=== PATIENT | male | born 1950 | race Caucasian/White ===

== ENCOUNTER → 2017-11-15 08:05 | Outpatient (CLI) | payer MEDICARE, SELFPAY ==
[2017-11-15 09:23] LABS: Hemoglobin A1C% w Est Avg Glu 6.9 % (4.0-6.0)
[2017-11-15 09:56] LABS: Alanine Aminotransferase 33 IU/L (21-72); Albumin 4.1 g/dL (3.5-5.0); Albumin Globulin Ratio 1.6 (1.0-2.8); Alkaline Phosphatase 69 U/L (38-126); Aspartate Aminotransferase 23 IU/L (17-59); BUN Creatinine Ratio 17.8 (6-22); Bilirubin Total 0.7 mg/dL (0.2-1.3); Blood Urea Nitrogen 16 mg/dL (9-20); Calcium 9.5 mg/dL (8.4-10.2); Carbon Dioxide 30 mmol/L (22-32); Chloride 102 mmol/L (98-107); Cholesterol 165 mg/dL (140-199); Estimated Glomerular Filt Rate > 60.0 mL/min (>60); Globulin 2.6 g/dL (1.7-4.1); Glucose 136 mg/dL (80-110); HDL Cholesterol 43 mg/dL (40-60); HEMOLYSIS < 15 (0-50); LDL Cholesterol Calculated 73 mg/dL (<100); Potassium 4.8 mmol/L (3.4-5.1); Sodium 142 mmol/L (137-145); Total Protein 6.7 g/dL (6.3-8.2); Triglycerides 244 mg/dL (35-150)
== END ==
PROVIDERS: PCP Internal Medicine; Visit Provider Internal Medicine
DX: E78.5 Hyperlipidemia, unspecified (principal); E11.65 Type 2 diabetes mellitus with hyperglycemia
CPT/HCPCS: 36415; 80053; 80061; 83036

== ENCOUNTER → 2018-02-22 08:17 | Outpatient (CLI) | payer MEDICARE, SELFPAY ==
[2018-02-22 08:49] LABS: Hemoglobin A1C% w Est Avg Glu 8.9 % (4.0-6.0)
[2018-02-22 08:51] LABS: Alanine Aminotransferase 39 IU/L (21-72); Albumin 4.4 g/dL (3.5-5.0); Albumin Globulin Ratio 1.5 (1.0-2.8); Alkaline Phosphatase 70 U/L (38-126); Aspartate Aminotransferase 26 IU/L (17-59); BUN Creatinine Ratio 15.6 (6-22); Bilirubin Total 0.5 mg/dL (0.2-1.3); Blood Urea Nitrogen 14 mg/dL (9-20); Calcium 9.4 mg/dL (8.4-10.2); Carbon Dioxide 29 mmol/L (22-32); Chloride 102 mmol/L (98-107); Cholesterol 159 mg/dL (140-199); Estimated Glomerular Filt Rate > 60.0 mL/min (>60); Globulin 2.9 g/dL (1.7-4.1); Glucose 201 mg/dL (80-110); Potassium 4.5 mmol/L (3.4-5.1); Sodium 142 mmol/L (137-145); Total Protein 7.3 g/dL (6.3-8.2); Triglycerides 218 mg/dL (35-150)
[2018-02-22 08:52] LABS: HDL Cholesterol 39 mg/dL (40-60); HEMOLYSIS < 15 (0-50); LDL Cholesterol Calculated 76 mg/dL (<100)
[2018-02-22 08:57] LABS: Add Manual Diff / Slide Review NO; Basophils Percent Auto 0.8 % (0-2); Hematocrit 37.6 % (41-53); Hemoglobin 12.5 g/dL (13.5-17.5); Lymphocytes Percent Auto 28.8 % (25-40); Mean Corpuscular HGB Conc 33.2 % (30-36); Mean Corpuscular Hemoglobin 27.4 PG (26-34); Mean Corpuscular Volume 82.5 fL (80-100); Monocytes Percent Auto 11.2 % (3-14); Neutrophils Absolute Auto 2700 /uL (3000-5900); Neutrophils Percent Auto 56.2 % (50-75); Platelet Count 175 X10^3/uL (150-400); Red Blood Cell Count 4.56 X10^6/uL (4.5-5.9); Red Cell Distribution Width 14.5 % (11.6-14.8); White Blood Cell Count 4.7 X10^3/uL (4.5-11.0)
[2018-02-22 09:17] LABS: HEMOLYSIS 15 (0-50); Iron 50 ug/dL (49-181)
[2018-02-22 09:21] LABS: Prostate Specific Antigen Scrn 0.589 ng/mL (0.1-4.0)
[2018-02-22 09:28] LABS: Percent Iron Saturation 12 % (20-50); Total Iron Binding Capacity 405 ug/dL (261-462); Transferrin 329 mg/dL (206-381)
== END ==
PROVIDERS: PCP Internal Medicine; Visit Provider Internal Medicine
DX: E11.65 Type 2 diabetes mellitus with hyperglycemia (principal); E78.5 Hyperlipidemia, unspecified; I10 Essential (primary) hypertension; Z12.5 Encounter for screening for malignant neoplasm of prostate; D64.9 Anemia, unspecified
CPT/HCPCS: 36415; 80053; 80061; 83036; 83540; 83550; 85025; G0103

== ENCOUNTER → 2018-05-24 08:16 | Outpatient (CLI) | payer OTHER, SELFPAY ==
[2018-05-24 09:02] LABS: Hemoglobin A1C% w Est Avg Glu 8.2 % (4.0-6.0)
[2018-05-24 09:32] LABS: BUN Creatinine Ratio 14.4 (6-22); Blood Urea Nitrogen 13 mg/dL (9-20); Calcium 9.4 mg/dL (8.4-10.2); Carbon Dioxide 27 mmol/L (22-32); Chloride 101 mmol/L (98-107); Estimated Glomerular Filt Rate > 60.0 mL/min (>60); Glucose 128 mg/dL (80-110); HEMOLYSIS < 15 (0-50); Potassium 4.6 mmol/L (3.4-5.1); Sodium 139 mmol/L (137-145)
== END ==
PROVIDERS: PCP Internal Medicine; Visit Provider Internal Medicine
DX: E11.65 Type 2 diabetes mellitus with hyperglycemia (principal)
CPT/HCPCS: 36415; 80048; 83036

== ENCOUNTER → 2018-08-02 07:47 | Outpatient (CLI) | payer OTHER, SELFPAY ==
[2018-08-02 09:08] LABS: Hemoglobin A1C% w Est Avg Glu 7.7 % (4.0-6.0)
[2018-08-02 09:39] LABS: BUN Creatinine Ratio 18.8 (6-22); Blood Urea Nitrogen 15 mg/dL (9-20); Calcium 9.4 mg/dL (8.4-10.2); Carbon Dioxide 26 mmol/L (22-32); Chloride 101 mmol/L (98-107); Estimated Glomerular Filt Rate > 60.0 mL/min (>60); Glucose 160 mg/dL (80-110); HEMOLYSIS < 15 (0-50); Potassium 4.4 mmol/L (3.4-5.1); Sodium 137 mmol/L (137-145)
== END ==
PROVIDERS: PCP Internal Medicine; Visit Provider Internal Medicine
DX: E11.65 Type 2 diabetes mellitus with hyperglycemia (principal); E11.9 Type 2 diabetes mellitus without complications
CPT/HCPCS: 36415; 80048; 83036

== ENCOUNTER → 2018-11-08 08:06 | Outpatient (CLI) | payer OTHER, SELFPAY ==
[2018-11-08 09:18] LABS: BUN Creatinine Ratio 16.3 (6-22); Blood Urea Nitrogen 13 mg/dL (9-20); Calcium 9.4 mg/dL (8.4-10.2); Carbon Dioxide 29 mmol/L (22-32); Chloride 99 mmol/L (98-107); Estimated Glomerular Filt Rate > 60.0 mL/min (>60); Glucose 175 mg/dL (80-110); HEMOLYSIS < 15 (0-50); Potassium 4.1 mmol/L (3.4-5.1); Sodium 138 mmol/L (137-145)
[2018-11-08 09:20] LABS: Hemoglobin A1C% w Est Avg Glu 8.2 % (4.0-6.0)
== END ==
PROVIDERS: PCP Internal Medicine; Visit Provider Internal Medicine
DX: E11.65 Type 2 diabetes mellitus with hyperglycemia (principal); I10 Essential (primary) hypertension
CPT/HCPCS: 36415; 80048; 83036

== ENCOUNTER → 2019-01-23 08:19 | Outpatient (CLI) | payer OTHER, SELFPAY ==
[2019-01-23 09:14] LABS: Hemoglobin A1C% w Est Avg Glu 8.9 % (4.0-6.0)
[2019-01-23 09:19] LABS: Blood Urea Nitrogen 12 mg/dL (9-20); Calcium 9.6 mg/dL (8.4-10.2); Carbon Dioxide 28 mmol/L (22-32); Chloride 102 mmol/L (98-107); Estimated Glomerular Filt Rate > 60.0 mL/min (>60); Glucose 157 mg/dL (80-110); HEMOLYSIS < 15 (0-50); Potassium 4.4 mmol/L (3.4-5.1); Sodium 139 mmol/L (137-145)
== END ==
PROVIDERS: PCP Internal Medicine; Visit Provider Internal Medicine
DX: E11.65 Type 2 diabetes mellitus with hyperglycemia (principal); I10 Essential (primary) hypertension
CPT/HCPCS: 36415; 80048; 83036

== ENCOUNTER → 2019-05-09 08:43 | Outpatient (CLI) | payer OTHER, SELFPAY ==
[2019-05-09 09:50] LABS: Hemoglobin A1C% w Est Avg Glu 8.2 % (4.0-6.0)
[2019-05-09 09:51] LABS: BUN Creatinine Ratio 16.3 (6-22); Blood Urea Nitrogen 13 mg/dL (9-20); Calcium 9.7 mg/dL (8.4-10.2); Carbon Dioxide 26 mmol/L (22-32); Chloride 103 mmol/L (98-107); Estimated Glomerular Filt Rate > 60.0 mL/min (>60); Glucose 162 mg/dL (80-110); HEMOLYSIS < 15 (0-50); Potassium 4.4 mmol/L (3.4-5.1); Sodium 139 mmol/L (137-145)
== END ==
PROVIDERS: PCP Internal Medicine; Referring Provider Internal Medicine; Visit Provider Internal Medicine
DX: E11.65 Type 2 diabetes mellitus with hyperglycemia (principal)
CPT/HCPCS: 36415; 80048; 83036

== ENCOUNTER → 2019-07-10 08:36 | Outpatient (CLI) | payer OTHER, SELFPAY ==
[2019-07-10 11:29] LABS: BUN Creatinine Ratio 14.1 (6-22); Blood Urea Nitrogen 11 mg/dL (9-20); Calcium 9.8 mg/dL (8.4-10.2); Carbon Dioxide 30 mmol/L (22-32); Chloride 100 mmol/L (98-107); Estimated Glomerular Filt Rate > 60.0 mL/min (>60); Glucose 157 mg/dL (80-110); HEMOLYSIS < 15 (0-50); Potassium 4.1 mmol/L (3.4-5.1); Sodium 138 mmol/L (137-145)
== END ==
PROVIDERS: PCP Internal Medicine; Referring Provider Internal Medicine; Visit Provider Internal Medicine
DX: E11.65 Type 2 diabetes mellitus with hyperglycemia (principal); I10 Essential (primary) hypertension
CPT/HCPCS: 36415; 80048; 83036

== ENCOUNTER → 2019-09-27 09:50 | Outpatient (CLI) | payer OTHER, SELFPAY ==
[2019-09-27 11:01] LABS: Hemoglobin A1C% w Est Avg Glu 8.9 % (4.0-6.0)
[2019-09-27 11:09] LABS: Alanine Aminotransferase 33 IU/L (<50); Albumin 4.2 g/dL (3.5-5.0); Albumin Globulin Ratio 1.8 (1.0-2.8); Alkaline Phosphatase 78 U/L (38-126); Aspartate Aminotransferase 28 IU/L (17-59); Bilirubin Total 0.7 mg/dL (0.2-1.3); Blood Urea Nitrogen 12 mg/dL (9-20); Calcium 9.7 mg/dL (8.4-10.2); Carbon Dioxide 28 mmol/L (22-32); Chloride 102 mmol/L (98-107); Estimated Glomerular Filt Rate > 60.0 mL/min (>60); Globulin 2.4 g/dL (1.7-4.1); Glucose 177 mg/dL (80-110); HEMOLYSIS < 15 (0-50); Potassium 4.7 mmol/L (3.4-5.1); Sodium 137 mmol/L (137-145); Total Protein 6.6 g/dL (6.3-8.2)
[2019-09-27 11:37] LABS: Prostate Specific Antigen Scrn 0.627 ng/mL (0.1-4.0)
== END ==
PROVIDERS: PCP Internal Medicine; Referring Provider Internal Medicine; Visit Provider Internal Medicine
DX: E11.65 Type 2 diabetes mellitus with hyperglycemia (principal); F41.1 Generalized anxiety disorder; I10 Essential (primary) hypertension; Z12.5 Encounter for screening for malignant neoplasm of prostate
CPT/HCPCS: 36415; 80053; 83036; G0103

== ENCOUNTER → 2019-12-03 08:10 | Outpatient (CLI) | payer OTHER, SELFPAY ==
[2019-12-03 09:34] LABS: Hemoglobin A1C% w Est Avg Glu 8.5 % (4.0-6.0)
[2019-12-03 09:52] LABS: BUN Creatinine Ratio 14.3 (6-22); Blood Urea Nitrogen 11 mg/dL (9-20); Carbon Dioxide 28 mmol/L (22-32); Chloride 103 mmol/L (98-107); Estimated Glomerular Filt Rate > 60.0 mL/min (>60); Glucose 156 mg/dL (80-110); HEMOLYSIS < 15 (0-50); Potassium 4.4 mmol/L (3.4-5.1); Sodium 138 mmol/L (137-145)
== END ==
PROVIDERS: PCP Internal Medicine; Referring Provider Internal Medicine; Visit Provider Internal Medicine
DX: E11.65 Type 2 diabetes mellitus with hyperglycemia (principal)
CPT/HCPCS: 36415; 80048; 83036

== ENCOUNTER → 2020-03-03 08:17 | Outpatient (CLI) | payer OTHER, SELFPAY ==
[2020-03-03 09:22] LABS: Hemoglobin A1C% w Est Avg Glu 7.8 % (4.0-6.0)
[2020-03-03 09:37] LABS: BUN Creatinine Ratio 21.9 (6-22); Blood Urea Nitrogen 16 mg/dL (9-20); Calcium 9.3 mg/dL (8.4-10.2); Carbon Dioxide 30 mmol/L (22-32); Chloride 102 mmol/L (98-107); Estimated Glomerular Filt Rate > 60.0 mL/min (>60); Glucose 159 mg/dL (80-110); HEMOLYSIS < 15 (0-50); Potassium 4.5 mmol/L (3.4-5.1); Sodium 137 mmol/L (137-145)
== END ==
PROVIDERS: PCP Internal Medicine; Referring Provider Internal Medicine; Visit Provider Internal Medicine
DX: E11.65 Type 2 diabetes mellitus with hyperglycemia (principal); I10 Essential (primary) hypertension
CPT/HCPCS: 36415; 80048; 83036

== ENCOUNTER → 2020-06-02 08:44 | Outpatient (CLI) | payer OTHER, SELFPAY ==
[2020-06-02 09:27] LABS: Alanine Aminotransferase 26 IU/L (<50); Albumin 4.5 g/dL (3.5-5.0); Albumin Globulin Ratio 1.6 (1.0-2.8); Alkaline Phosphatase 69 U/L (38-126); Aspartate Aminotransferase 27 IU/L (17-59); BUN Creatinine Ratio 18.4 (6-22); Bilirubin Total 0.6 mg/dL (0.2-1.3); Blood Urea Nitrogen 14 mg/dL (9-20); Calcium 9.6 mg/dL (8.4-10.2); Carbon Dioxide 29 mmol/L (22-32); Chloride 101 mmol/L (98-107); Cholesterol 169 mg/dL (140-199); Estimated Glomerular Filt Rate > 60.0 mL/min (>60); Globulin 2.8 g/dL (1.7-4.1); Glucose 177 mg/dL (80-110); HDL Cholesterol 35 mg/dL (40-60); HEMOLYSIS < 15 (0-50); LDL Cholesterol Calculated 83 mg/dL (<100); Potassium 4.2 mmol/L (3.4-5.1); Sodium 136 mmol/L (137-145); Total Protein 7.3 g/dL (6.3-8.2); Triglycerides 253 mg/dL (35-150)
[2020-06-02 09:29] LABS: Hemoglobin A1C% w Est Avg Glu 7.7 % (4.0-6.0)
== END ==
PROVIDERS: PCP Internal Medicine; Referring Provider Internal Medicine; Visit Provider Internal Medicine
DX: E11.65 Type 2 diabetes mellitus with hyperglycemia (principal); I10 Essential (primary) hypertension; E78.2 Mixed hyperlipidemia
CPT/HCPCS: 36415; 80053; 80061; 83036

== ENCOUNTER → 2020-09-03 08:44 | Outpatient (CLI) | payer OTHER, SELFPAY ==
[2020-09-03 10:39] LABS: BUN Creatinine Ratio 16.7 (6-22); Blood Urea Nitrogen 11 mg/dL (9-20); Calcium 9.2 mg/dL (8.4-10.2); Carbon Dioxide 26 mmol/L (22-32); Chloride 103 mmol/L (98-107); Estimated Glomerular Filt Rate > 60.0 mL/min (>60); Glucose 183 mg/dL (80-110); HEMOLYSIS 19 (0-50); Potassium 4.3 mmol/L (3.4-5.1); Sodium 137 mmol/L (137-145)
== END ==
PROVIDERS: PCP Internal Medicine; Referring Provider Internal Medicine; Visit Provider Internal Medicine
DX: E11.65 Type 2 diabetes mellitus with hyperglycemia; I10 Essential (primary) hypertension
CPT/HCPCS: 36415; 80048; 83036

== ENCOUNTER → 2020-10-21 09:53 | Outpatient (CLI) | payer OTHER, SELFPAY ==
--- NOTE | 2020-10-21 14:33 | DIET.PN ---
Initial Diabetes Assessment Date: 10/21/20 Time: 10- Dx: Type II Diabetes Provider: Darwin Preferred Learning Style: All PMH: HTN, QUINCY, diabetic peripheral neuropathy, eczema, psoriasis, allergic rhinitis Saulo presents today for initial diabetes assessment. Reports FH of DM with mother. Endorses personal h/o DM for 6 years. Had initial classes and education for DM at [facility]. Would like to discuss nutrition recommendations for BG management. He is pescitarian. Last HgA1c was 9%, up from previous 7.7%. States he has been taking glipizide, though feels it is not helping BG. Did not notice decrease in readings when starting per his report. Endorses trying sitagliptin for 3 months in the past without much decrease in readings. Provider notes indicates potential for GLP1 if readings do not improve. RD/CDCES would agree with this as a next step in medication mgmnt. Saulo would like to try some lifestyle interventions first. Notable stress related to work and mother with early dementia (living with him and his ). 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 No current stress mgmnt techniques in place. Spends most of his day sedentary, except for bike ride in afternoon. Diet Recall: 830a: 4 TBS oats with ? TBS b. sugar, 2 TBS seeds, Americano with 1 TBS chocolate flavor (40g CHO) 1230p: left overs OR PB on wheat with yogurt, ? apple, +/- sm orange/cutie (50-60g CHO) 230p: nuts; sometimes mugging or cookie or bagel 1-2 x per week + Americano (0-70g CHO) 530p: ravioli with pesto and salad OR fish asparagus and 1c rice OR potato with salad (30-60 9p: nuts (0g CHO) Beverages: 24oz water, + Americano 1-2 x per day Anthropometrics: Ht: 5?10? Wt: 195# (no change) Physical Activity: Bike 45-60 min 5 days per week. Walking ADLs Self-Monitoring Blood Glucose: Checks Fasting BG q day. No meter or log today. Usually readings 180-210 mg/dL (H). When originally dx and made lifestyle changes, FBG was in the 90s mg/dL. Pertinent Labs: HgA1c 9% Diabetes Medications: Glipizide 10 mg BID Metformin 1000 mg BID Nutrition Rx: Carbohydrates: Daily: 130-180g Meal: 45-60g Snack: 15-30g Nutrition Diagnosis: - Inadequate fluid intake r/t limited water aeb diet recall - Excessive CHO intake r/t coffee and sweets 1-2 x per week aeb diet recall - Physical inactivity r/t prolonged sedentary time with work aeb pt report - Inconsistent protein intake r/t nutrition knowledge deficit aeb diet recall Intervention: Provided evidence based medical nutrition therapy for type II diabetes. This participant was very receptive. Provided appropriate educational handouts. Discussed the following topics: - Completed intake assessment. Discussed barriers to care. - Reviewed HgA1c and its correlation to blood glucose numbers. - Improtance of self-monitoring, how often, and when to check. Suggested checking at different times to evaluate meals -Plate Method, impact of macronutrients on blood sugar, meal timing, carb counting, pairing macronutrients and spreading out CHO for better BG management - Rec servings for carbohydrates at meals and snacks - Role of physical activity and following provider guidelines for safety - Role of stress and brainstormed ways to manage stress - DM medications action - Role of hydration in BG management - Created SMART goals for pt self-care and success. Goals: - Look into resources for stress management, as discussed - 64 oz water daily - Set alarm during work day to move 5-15 min - Bring BG meter or log book next visit Follow-up: DREAD ELLIS follow-up in 2-3 weeks Next visit topics: meal/snack planning, GLP1 action Nia Antonio RDN, [facility] Certified Diabetes Care and Crystal Syrup Maker P: [phone]
== END ==
PROVIDERS: PCP Internal Medicine; Referring Provider Internal Medicine; Visit Provider Internal Medicine
DX: E11.42 Type 2 diabetes mellitus with diabetic polyneuropathy (principal); I10 Essential (primary) hypertension; Z79.84 Long term (current) use of oral hypoglycemic drugs; Z71.3 Dietary counseling and surveillance
CPT/HCPCS: G0108

== ENCOUNTER → 2020-11-11 10:24 | Outpatient (CLI) | payer OTHER, SELFPAY ==
--- NOTE | 2020-11-11 14:54 | DIET.PN1 ---
Follow-up Diabetes Assessment Date: 11/11/20 Time: 5421-7950g Dx: Type II Diabetes Provider: Darwin [facility]: HTN, QUINCY, diabetic peripheral neuropathy, eczema, psoriasis, allergic rhinitis Saulo reports his main concerns today for diabetes management is medication and nutrition changes. States he finds his blood sugars to be illogical since he has within goal readings after exercise but wakes with elevations. Today he is looking for more specifics around carb portions. In reviewing his mostly vegetarian meals, many are low in protein and slightly high in carbohydrate. Further, his blood sugars in the morning continue above goal, though this may be r/t alvaro phenomenon and less about food intake. States that his blood sugars can be 80-90 mg/dL after his nightly bike ride post dinner. He still wakes with blood sugars often >170 mg/dL. He has questions as to whether his medication regimen should be changed and what dietary changes he should make. Reports stress management is still a challenge. Has a history of self-hypnosis where he visualizes a beautiful place. Has reviewed resource provided last visit on stress. Anthropometrics: Ht: 5?10? Last Wt: 195# Physical Activity: Bike 45-60 min 5 days per week. Walking ADLs Self-Monitoring Blood Glucose: Checks Fasting BG q day. Review of FBG readings indicate all but one reading elevated as of recent (196, 180, 123, 185, 223). One after breakfast reading recorded at 223 mg/dL H. Plans to check HS readings to see how these look as well. Pertinent Labs: HgA1c 9% Diabetes Medications: Glipizide 10 mg BID Metformin 1000 mg BID Intervention: This participant was very receptive. Provided appropriate educational handouts. Discussed the following topics: - Appropriate carb and protein portions - Label readings for net carbs - Adding more vegetables to diet for satiety and nutrients - What stress mgmnt looks like for him - Medication actions, SE and options - Created SMART goals for pt self-care and success. If started on GLP1 RA, Saulo may benefit from d/c of glipizide and continuing Metformin. Today we discussed action of each medication class. He is on board with adding another glucose lowering agent if hyperglycemia continues. Goals: - Look into resources for stress management, as discussed- met - 64 oz water daily- in progress - Set alarm during work day to move 5-15 min- not needed - Bring BG meter or log book next visit - met - Try carb balance tortillas- new - Try checking BG HS- new - Increase protein at breakfst and dinner more consistently- new - Try visualization visit meditation for stress mgmgnt twice per week- new Follow-up: DREAD ELLIS follow-up in 3 weeks. PCP visit in 4 weeks. Nia Antonio RDN, [facility] Certified Diabetes Care and Shaving Machine Operator P: [phone]
== END ==
PROVIDERS: PCP Internal Medicine; Referring Provider Internal Medicine; Visit Provider Internal Medicine
DX: E11.42 Type 2 diabetes mellitus with diabetic polyneuropathy (principal); I10 Essential (primary) hypertension; Z79.84 Long term (current) use of oral hypoglycemic drugs; Z71.3 Dietary counseling and surveillance
CPT/HCPCS: G0108

== ENCOUNTER → 2020-11-25 11:25 | Outpatient (CLI) | payer OTHER, SELFPAY ==
--- NOTE | 2020-11-25 17:33 | DIAB.FU ---
Follow-up Diabetes Assessment Date: 11/25/20 Time: 1130a-1200p Dx: Type II Diabetes Provider: Darwin [facility]: HTN, QUINCY, diabetic peripheral neuropathy, eczema, psoriasis, allergic rhinitis Saulo reports his blood sugars continue to be elevated despite increasing exercise. Seems likely he may need additional DM med. Has PCP appt on 11/30/20. Saulo is open to adding another medication, though would like to potentially decrease or d/c a current medication. Endorses difficulty with getting certain DM meds covered by insurance in the past. Reports he is unsure how providers decide which meds to choose for BG mgmnt. States he has increased his water intake. Has recently made changes at work to lessen workload, increase creative projects, and decrease stress. Anthropometrics: Ht: 5?10? Last Wt: 195# Physical Activity: 10 mi bike ride q other day. Also walking 1/2 mi on non-bike days. Considering getting a bike system such as [email or web address] for his birthday this month. Self-Monitoring Blood Glucose: Checking fasting and two HS readings (120 and 180 mg/dL). All fasting above target at 195-230 mg/dL. Pertinent Labs: HgA1c 9% Diabetes Medications: Glipizide 10 mg BID Metformin 1000 mg BID Intervention: This participant was very receptive. Provided appropriate educational handouts. Discussed the following topics: - Changes he has made and how those contribute to overall health - Stress management - hormonal impact on T2DM, alvaro phenomenon - BG goals and trends - DM medications and ADA example med algorithm - DM meds SE and action If started on GLP1 RA, Saulo may benefit from d/c of glipizide and continuing Metformin. He would likely benefit from an additional glucose lowering agent given persistent hyperglycemia in the morning despite lifestyle changes. He is on board with adding another glucose lowering agent if hyperglycemia continues. Goals: - Try carb balance tortillas- new - Try checking BG HS- new - Increase protein at breakfst and dinner more consistently- new - Try visualization visit meditation for stress mgmgnt twice per week- new - Call insurance for medication coverage options- new Follow-up: DREAD ELLIS follow-up prn. Encouraged him to call my office with questions/concerns with potential new medications and HgA1c progress in the future. He agreed to this plan. Nia Antonio RDN, [facility] Certified Diabetes Care and Kennel Helper P: [phone]
== END ==
PROVIDERS: PCP Internal Medicine; Referring Provider Internal Medicine; Visit Provider Internal Medicine
DX: E11.42 Type 2 diabetes mellitus with diabetic polyneuropathy (principal); I10 Essential (primary) hypertension; Z79.84 Long term (current) use of oral hypoglycemic drugs; Z71.3 Dietary counseling and surveillance
CPT/HCPCS: G0108

== ENCOUNTER → 2020-11-26 08:36 | Outpatient (CLI) | payer OTHER, SELFPAY ==
[2020-11-26 09:44] LABS: Hemoglobin A1C% w Est Avg Glu 8.7 % (4.0-6.0)
[2020-11-26 11:12] LABS: BUN Creatinine Ratio 17.1 (6-22); Blood Urea Nitrogen 12 mg/dL (9-20); Calcium 9.6 mg/dL (8.4-10.2); Carbon Dioxide 26 mmol/L (22-32); Chloride 103 mmol/L (98-107); Estimated Glomerular Filt Rate > 60.0 mL/min (>60); Glucose 232 mg/dL (80-110); HEMOLYSIS < 15 (0-50); Potassium 4.7 mmol/L (3.4-5.1); Sodium 137 mmol/L (137-145)
== END ==
PROVIDERS: PCP Internal Medicine; Referring Provider Internal Medicine; Visit Provider Internal Medicine
DX: E11.65 Type 2 diabetes mellitus with hyperglycemia (principal)
CPT/HCPCS: 36415; 80048; 83036

== ENCOUNTER → 2021-01-28 15:04 | Outpatient (CLI) | payer MEDICARE, SELFPAY ==
[2021-01-28] MEDS: COVID-19 VACC #3, MRNA(MOD) 50 MCG/0.25 ML VIAL IM (15:10)
== END ==
PROVIDERS: PCP Internal Medicine; Visit Provider Internal Medicine
DX: Z23 Encounter for immunization (principal)
CPT/HCPCS: 0013A; 91301

== ENCOUNTER → 2021-02-25 08:41 | Outpatient (CLI) | payer OTHER, SELFPAY ==
[2021-02-25 09:20] LABS: Add Manual Diff / Slide Review NO; Basophils Absolute Auto 0 /uL (0-100); Basophils Percent Auto 0.4 % (0-2); Eosinophils Absolute Auto 100 /uL (0-450); Eosinophils Percent Auto 2.1 % (2-4); Hematocrit 34.1 % (41-53); Hemoglobin 11.1 g/dL (13.5-17.5); Lymphocytes Absolute Auto 1300 /uL (1100-4500); Lymphocytes Percent Auto 25.6 % (25-40); Mean Corpuscular HGB Conc 32.6 % (30-36); Mean Corpuscular Hemoglobin 24.7 PG (26-34); Mean Corpuscular Volume 75.7 fL (80-100); Monocytes Absolute Auto 500 /uL (0-900); Monocytes Percent Auto 10.5 % (3-14); Neutrophils Absolute Auto 3100 /uL (1500-7000); Neutrophils Percent Auto 61.4 % (50-75); Platelet Count 187 X10^3/uL (150-400); Red Blood Cell Count 4.51 X10^6/uL (4.5-5.9); Red Cell Distribution Width 15.8 % (11.6-14.8); White Blood Cell Count 5.1 X10^3/uL (4.5-11.0)
[2021-02-25 09:26] LABS: Hemoglobin A1C% w Est Avg Glu 7.2 % (4.0-6.0)
[2021-02-25 09:39] LABS: HEMOLYSIS < 15 (0-50); Potassium 4.2 mmol/L (3.4-5.1)
[2021-02-25 09:40] LABS: BUN Creatinine Ratio 15.9 (6-22); Blood Urea Nitrogen 11 mg/dL (9-20); Calcium 9.9 mg/dL (8.4-10.2); Carbon Dioxide 27 mmol/L (22-32); Chloride 101 mmol/L (98-107); Estimated Glomerular Filt Rate > 60.0 mL/min (>60); Glucose 161 mg/dL (80-110); Sodium 139 mmol/L (137-145)
== END ==
PROVIDERS: PCP Internal Medicine; Referring Provider Internal Medicine; Visit Provider Internal Medicine
DX: E11.65 Type 2 diabetes mellitus with hyperglycemia (principal); D64.9 Anemia, unspecified
CPT/HCPCS: 36415; 80048; 83036; 85025

== ENCOUNTER → 2021-05-27 08:36 | Outpatient (CLI) | payer OTHER, SELFPAY ==
[2021-05-27 09:58] LABS: Hemoglobin A1C% w Est Avg Glu 8.9 % (4.0-6.0)
[2021-05-27 10:42] LABS: Alanine Aminotransferase 28 IU/L (<50); Albumin 4.5 g/dL (3.5-5.0); Albumin Globulin Ratio 1.7 (1.0-2.8); Alkaline Phosphatase 66 U/L (38-126); Aspartate Aminotransferase 23 IU/L (17-59); BUN Creatinine Ratio 19.5 (6-22); Bilirubin Total 0.5 mg/dL (0.2-1.3); Blood Urea Nitrogen 15 mg/dL (9-20); Calcium 9.4 mg/dL (8.4-10.2); Carbon Dioxide 27 mmol/L (22-32); Chloride 105 mmol/L (98-107); Cholesterol 169 mg/dL (140-199); Estimated Glomerular Filt Rate > 60.0 mL/min (>60); Globulin 2.7 g/dL (1.7-4.1); Glucose 181 mg/dL (80-110); HDL Cholesterol 41 mg/dL (40-60); HEMOLYSIS < 15 (0-50); LDL Cholesterol Calculated 84 mg/dL (<100); Potassium 4.6 mmol/L (3.4-5.1); Sodium 140 mmol/L (137-145); Total Protein 7.2 g/dL (6.3-8.2); Triglycerides 218 mg/dL (35-150)
== END ==
PROVIDERS: PCP Internal Medicine; Referring Provider Internal Medicine; Visit Provider Internal Medicine
DX: E11.9 Type 2 diabetes mellitus without complications (principal); I10 Essential (primary) hypertension; E78.2 Mixed hyperlipidemia
CPT/HCPCS: 36415; 80053; 80061; 83036

== ENCOUNTER → 2021-09-23 08:32 | Outpatient (CLI) | payer OTHER, SELFPAY ==
[2021-09-23 09:34] LABS: Hemoglobin A1C% w Est Avg Glu 7.9 % (4.0-6.0)
[2021-09-23 09:47] LABS: BUN Creatinine Ratio 11.3 (6-22); Blood Urea Nitrogen 9 mg/dL (9-20); Carbon Dioxide 25 mmol/L (22-32); Chloride 105 mmol/L (98-107); Estimated Glomerular Filt Rate > 60 mL/min (>60); Glucose 160 mg/dL (80-110); HEMOLYSIS < 15 (0-50); Potassium 4.3 mmol/L (3.4-5.1); Sodium 139 mmol/L (137-145)
== END ==
PROVIDERS: PCP Internal Medicine; Referring Provider Internal Medicine; Visit Provider Internal Medicine
DX: E11.65 Type 2 diabetes mellitus with hyperglycemia (principal)
CPT/HCPCS: 36415; 80048; 83036

== ENCOUNTER → 2022-01-04 09:41 | Outpatient (CLI) | payer OTHER, SELFPAY ==
[2022-01-04 11:35] LABS: Hemoglobin A1C% w Est Avg Glu 7.8 % (4.0-6.0)
[2022-01-04 12:06] LABS: Alanine Aminotransferase 22 IU/L (<50); Albumin 4.5 g/dL (3.5-5.0); Albumin Globulin Ratio 1.6 (1.0-2.8); Alkaline Phosphatase 73 U/L (38-126); Aspartate Aminotransferase 21 IU/L (17-59); BUN Creatinine Ratio 15.4 (6-22); Bilirubin Total 0.5 mg/dL (0.2-1.3); Blood Urea Nitrogen 14 mg/dL (9-20); Calcium 9.3 mg/dL (8.4-10.2); Carbon Dioxide 24 mmol/L (22-32); Chloride 105 mmol/L (98-107); Cholesterol 166 mg/dL (140-199); Estimated Glomerular Filt Rate > 60 mL/min (>60); Globulin 2.9 g/dL (1.7-4.1); Glucose 159 mg/dL (80-110); HDL Cholesterol 43 mg/dL (40-60); HEMOLYSIS < 15 (0-50); LDL Cholesterol Calculated 81 mg/dL (<100); Potassium 4.6 mmol/L (3.4-5.1); Sodium 142 mmol/L (137-145); Total Protein 7.4 g/dL (6.3-8.2); Triglycerides 208 mg/dL (35-150)
== END ==
PROVIDERS: PCP Internal Medicine; Referring Provider Internal Medicine; Visit Provider Internal Medicine
DX: E11.9 Type 2 diabetes mellitus without complications (principal); E78.2 Mixed hyperlipidemia; I10 Essential (primary) hypertension
CPT/HCPCS: 36415; 80053; 80061; 83036

== ENCOUNTER → 2022-03-28 08:42 | Outpatient (CLI) | payer OTHER, SELFPAY ==
[2022-03-28 10:22] LABS: Hemoglobin A1C% w Est Avg Glu 8.2 % (4.0-6.0)
[2022-03-28 10:37] LABS: Alanine Aminotransferase 25 IU/L (<50); Albumin 4.5 g/dL (3.5-5.0); Albumin Globulin Ratio 1.7 (1.0-2.8); Alkaline Phosphatase 77 U/L (38-126); Aspartate Aminotransferase 22 IU/L (17-59); Bilirubin Total 0.7 mg/dL (0.2-1.3); Blood Urea Nitrogen 16 mg/dL (9-20); Calcium 9.3 mg/dL (8.4-10.2); Carbon Dioxide 23 mmol/L (22-32); Chloride 102 mmol/L (98-107); Estimated Glomerular Filt Rate > 60 mL/min (>60); Globulin 2.7 g/dL (1.7-4.1); Glucose 144 mg/dL (80-110); HEMOLYSIS < 15 (0-50); Potassium 4.6 mmol/L (3.4-5.1); Sodium 137 mmol/L (137-145); Total Protein 7.2 g/dL (6.3-8.2)
== END ==
PROVIDERS: PCP Internal Medicine; Referring Provider Internal Medicine; Visit Provider Internal Medicine
DX: E11.9 Type 2 diabetes mellitus without complications (principal); I10 Essential (primary) hypertension
CPT/HCPCS: 36415; 80053; 83036

== ENCOUNTER → 2022-07-06 08:34 | Outpatient (CLI) | payer OTHER, SELFPAY ==
[2022-07-06 10:37] LABS: BUN Creatinine Ratio 18.8 (6-22); Blood Urea Nitrogen 16 mg/dL (9-20); Calcium 9.2 mg/dL (8.4-10.2); Carbon Dioxide 25 mmol/L (22-32); Chloride 102 mmol/L (98-107); Estimated Glomerular Filt Rate > 60 mL/min (>60); Glucose 157 mg/dL (80-110); HEMOLYSIS < 15 (0-50); Potassium 4.6 mmol/L (3.4-5.1); Sodium 137 mmol/L (137-145)
[2022-07-07 06:10] LABS: Labcorp Hemoglobin (Hb) A1c 8.3 % (4.8-5.6)
== END ==
PROVIDERS: PCP Internal Medicine; Referring Provider Internal Medicine; Visit Provider Internal Medicine
DX: E78.2 Mixed hyperlipidemia (principal); I10 Essential (primary) hypertension; E11.9 Type 2 diabetes mellitus without complications
CPT/HCPCS: 36415; 80048; 83036

== ENCOUNTER → 2022-10-05 08:36 | Outpatient (CLI) | payer OTHER, SELFPAY ==
[2022-10-05 09:42] LABS: BUN Creatinine Ratio 19.5 (6-22); Blood Urea Nitrogen 17 mg/dL (9-20); Estimated Glomerular Filt Rate > 60 mL/min (>60)
[2022-10-05 10:08] LABS: Creatinine Urine Random 60.4 mg/dL
[2022-10-05 10:17] LABS: Microalbumin Urine Random < 0.6 mg/dL (0-1.6)
[2022-10-06 09:17] LABS: x Labcorp Estim. Avg Glu (eAG) 148 mg/dL (.); x Labcorp Hemoglobin A1c 6.8 % (4.8-5.6)
== END ==
PROVIDERS: PCP Internal Medicine; Referring Provider Internal Medicine; Visit Provider Internal Medicine
DX: E11.9 Type 2 diabetes mellitus without complications (principal); F41.1 Generalized anxiety disorder; I10 Essential (primary) hypertension; E11.42 Type 2 diabetes mellitus with diabetic polyneuropathy
CPT/HCPCS: 36415; 82043; 82565; 82570; 83036; 84520

== ENCOUNTER → 2023-01-05 08:37 | Outpatient (CLI) | payer OTHER, SELFPAY ==
[2023-01-05 10:38] LABS: Hemoglobin A1C% w Est Avg Glu 7.8 % (4.0-6.0)
[2023-01-05 10:59] LABS: BUN Creatinine Ratio 18.3 (6-22); Blood Urea Nitrogen 15 mg/dL (9-20); Calcium 9.3 mg/dL (8.4-10.2); Carbon Dioxide 26 mmol/L (22-32); Chloride 102 mmol/L (98-107); Estimated Glomerular Filt Rate > 60 mL/min (>60); Glucose 128 mg/dL (80-110); HEMOLYSIS < 15 (0-50); Potassium 4.5 mmol/L (3.4-5.1); Sodium 137 mmol/L (137-145)
== END ==
PROVIDERS: PCP Internal Medicine; Referring Provider Internal Medicine; Visit Provider Internal Medicine
DX: E11.9 Type 2 diabetes mellitus without complications (principal); I10 Essential (primary) hypertension
CPT/HCPCS: 36415; 80048; 83036

== ENCOUNTER → 2023-04-06 08:42 | Outpatient (CLI) | payer OTHER, SELFPAY ==
[2023-04-06 09:25] LABS: BUN Creatinine Ratio 20.3 (6-22); Blood Urea Nitrogen 16 mg/dL (9-20); Calcium 9.7 mg/dL (8.4-10.2); Carbon Dioxide 25 mmol/L (22-32); Chloride 106 mmol/L (98-107); Estimated Glomerular Filt Rate > 60 mL/min (>60); Glucose 179 mg/dL (80-110); HEMOLYSIS < 15 (0-50); Potassium 4.3 mmol/L (3.4-5.1); Sodium 140 mmol/L (137-145)
[2023-04-06 10:34] LABS: Creatinine Urine Random 75.8 mg/dL
[2023-04-06 10:38] LABS: Microalbumi Creatinin Ratio Ur 10.5 ug/mg CR (<30); Microalbumin Urine Random 0.8 mg/dL (0-1.6)
[2023-04-06 11:21] LABS: Hemoglobin A1C% w Est Avg Glu 7.5 % (4.0-6.0)
== END ==
PROVIDERS: PCP Internal Medicine; Referring Provider Internal Medicine; Visit Provider Internal Medicine
DX: E11.9 Type 2 diabetes mellitus without complications (principal)
CPT/HCPCS: 36415; 80048; 82043; 82570; 83036

== ENCOUNTER 2023-05-04 07:02 | Day surgery (SDC) | payer OTHER, SELFPAY ==
--- NOTE | 2023-05-04 | PATH_ITS ---
[facility] Accession Number: [id number] No. of containers..02 Tissue . 01 Material submitted: . PART A: colon - ASCENDING PART B: colon - DESCENDING . 01 Diagnosis: A. ASCENDING COLON, BIOPSY: Inflammatory polyp. . B. DESCENDING COLON, BIOPSY: Polypoid colonic mucosa with no neoplasm identified, consistent with mucosal redundancy. MRV 05/11/2023 1105 Local . 01 Electronically signed: . Eneida Wright MD, Pathologist NPI- [id number] . 01 Gross description: . Part A: ASCENDING : Received in formalin is 1 fragment(s) of rodriguez, soft tissue measuring 0.3 x 0.2 x 0.2 cm submitted entirely in 1 cassette(s) Part B: DESCENDING : Received in formalin is 1 fragment(s) of rodriguez, soft tissue measuring 0.3 x 0.3 x 0.2 cm submitted entirely in 1 cassette(s) /DAMIAN 05/08/2023 1856 Local . 01 Pathologist provided ICD-10: Z12.11, K51.40 . 01 CPT . 775480, 594682 Specimen Comment: A courtesy copy of this report has been sent to [phone] Performed at: 01 [facility] [address] [place] [address] [address] [facility], [place], [place] [id number] MD Elan Treviño MD Phone: [phone]
[2023-05-04 07:34] VITALS: BP 160/83; PULSE 97; RESP 18; TEMP 36.2; O2SAT 98
--- NOTE | 2023-05-04 07:35 | P.HP_ITS ---
History of Present Illness History of Present Illness Date Patient Seen: 05/04/23 Time Patient Seen: 07:35 Chief complaint: SDC Narrative: Screening for colon cancer. Last scope 13yrs ago. No family history or gi symptoms PFSH Medical History BPH w urinary obs/LUTS Tinnitus Low testosterone Chicken pox Measles Mumps Eczema Psoriasis Shoulder pain (2014) Nummular eczema (06/29/17) Diabetic peripheral neuropathy (05/09/16) Type 2 diabetes mellitus (04/21/14) Generalized anxiety disorder (11/11/10) Allergic rhinitis (11/11/10) Hyperlipidemia (11/11/10) Essential hypertension (11/11/10) Surgical History No history of previous surgery (01/2015) Family History Brother Age: 68 Overweight Father Age: 101 Hypertension Mother Age: 96 Diabetes mellitus Social History marital status: number of children: 1 household members: spouse and family lives independently: Yes caregiver/support person: No housing: house pets and animals: Yes education level: master's degree occupational status: employed and other current occupational exposures/hazards: No travel history: recurrent leisure activities: art Smoking Status: Never smoker Tobacco: How many years used: 0 quit status: quit date established second hand exposure: No alcohol intake: current substance use type: does not use Meds Home Medications and Allergies Home Medications Medication Instructions Recorded Confirmed Type ASPIRIN (Aspirin Low Dose) 81 mg PO Q DAY ##0 05/17/10 05/04/23 History [ALLER-JANET] 1 tab PO Q DAY ##0 05/17/10 05/04/23 History alprazolam 0.5 mg tablet 0.5 - 1 mg (1 - 2 x 0.5 mg) PO 03/06/11 05/04/23 Rx Q8HP PRN anxiety #20 tabs CeraVe #1 ea 11/20/17 04/10/23 History cholecalciferol (vitamin D3) 25 1,000 unit PO DAILY #0 tabs 05/12/04/10/23 History mcg (1,000 unit) tablet (Vitamin D3) vitamin B complex (B 1 tab PO DAILY 05/12/19 04/10/23 History Complex-Vitamin B12 tablet) venlafaxine 75 mg capsule,extended 75 mg PO DAILY #90 caps 09/21/22 05/04/23 Rx release 24 hr empagliflozin 25 mg tablet 25 mg PO DAILY #90 tabs 09/22/22 05/04/23 Rx (Jardiance) glipizide 10 mg tablet 10 mg PO BID #180 tabs 10/23/22 05/04/23 Rx lisinopril 20 mg tablet 20 mg PO BID #180 tabs 10/23/22 05/04/23 Rx propranolol 20 mg tablet 20 mg PO BID #180 tabs 10/23/22 05/04/23 Rx atorvastatin 20 mg tablet See Rx Instructions .Route 01/08/23 05/04/23 Rx .COMPLEX #90 tabs metformin 1,000 mg tablet 1,000 mg PO BID #180 tabs 01/17/23 05/04/23 Rx fluticasone propionate 50 1 spray intranasal Q12H #16 grams 02/19/23 05/04/23 Rx mcg/actuation nasal spray,suspension (Flonase Allergy Relief) clonazepam 0.5 mg tablet 0.5 mg PO BID #180 tabs 03/05/23 05/04/23 Rx tamsulosin 0.4 mg capsule 0.8 mg (2 x 0.4 mg) PO DAILY #180 04/10/23 05/04/23 Rx caps flash glucose sensor (FreeStyle #2 ea 04/26/23 Rx Luis Manuel 2 Sensor kit) Allergies Allergy/AdvReac Type Severity Reaction Status Date / Time semaglutide [From Ozempic] AdvReac Intermediate Verified 04/10/23 10:14 Review of Systems Review of Systems ROS: Yes All systems reviewed with the patient and are negative except as otherw ise documented Exam Const General: cooperative, healthy appearing and comfortable Orientation: alert, awake and oriented x3 HENMT Head: normocephalic and atraumatic Eyes General: appearance normal, both eyes and all related structures Sclera: sclerae normal Neck Neck: trachea midline and No JVD Resp Effort & Inspection: normal respiratory effort and able to speak in complete sentences Cardio Rate: regular rate Rhythm: regular rhythm GI Palpation: soft and No tender Skin General: atrophy Neuro General: patient alert, patient awake and patient oriented x3 Cognition: normal cognition Speech: speech normal Psych Mental Status: mental status grossly normal Judgment: judgment good Assessment & Plan Assessment & Plan narrative: Colon cancer screening using colonoscopy with anesthesia Time Spent With Patient Time with patient: less than 30 minutes
[2023-05-04] MEDS: LACTATED RINGERS 1,000 ML 42 ML IV (07:36)
--- NOTE | 2023-05-04 08:20 | P.OP.COLON_ITS ---
Operative Date/Time/Diagnoses Date of procedure: 05/04/23 Time of procedure: 08:20 Pre-op diagnosis: Colon cancer screening Post-op diagnosis: same Procedure & Clinicians Study performed: Colonoscopy with anesthesia and cold forceps polypectomy Same procedure as scheduled: Yes Indications: Colon cancer screening Surgeon: Colleen De Luna Procedure Notes Procedure in detail: Preop diagnosis: Colon cancer screening Postop diagnosis: Same Operative procedure: Colonoscopy with cold forceps polypectomy under anesthesia Surgeon: Brissa De Luna MD Findings: 2 small sessile polyps 3 mm each 1 in the ascending colon and 1 in the descending colon taken with cold forceps. Procedure: Patient placed in a lateral position. Rectal exam performed showing normal tone no masses. Colonoscope inserted into the rectum and advanced to ile ocecal valve with minimal difficulty. Insufflation extraction of the scope and the above findings. The 2 polyps mentioned above were taken with cold forceps for polypectomy. Retroflex was included in the rectum Impression: 2 small sessile polyps 1 in the ascending 1 in the descending both 3 mm in size. No other significant abnormalities. Bowel prep was poor. Plan: Repeat colonoscopy in 5 years unless otherwise indicated by change in clinical condition Findings: polyp(s) (3 mm sessile polyp in the ascending and 1 in the descending for a total of 2) Specimen(s): other (Polyps) Complications: none Post-procedure Recommendations: Colonoscopy in 5 years Follow up: as needed Disposition: PACU
[2023-05-04 08:25] VITALS: BP 111/74; PULSE 82; RESP 16; TEMP 37.2; O2SAT 98
[2023-05-04 08:31] VITALS: BP 106/61; PULSE 82; RESP 16; O2SAT 98
[2023-05-04 08:33] VITALS: BP 118/59; PULSE 80; RESP 16; TEMP 37.2; O2SAT 98
== END 2023-05-04 08:45 | disposition home or self-care (01) ==
PROVIDERS: PCP Internal Medicine; Referring Provider Surgery; Visit Provider Surgery
PROC: 0DJD8ZZ Inspection of Lower Intestinal Tract, Via Natural or Artificial Opening Endoscopic (ICD-10-PCS; CPT 45378; principal; 2023-05-04 07:45)
DX: Z12.11 Encounter for screening for malignant neoplasm of colon (principal); K51.40 Inflammatory polyps of colon without complications; K63.5 Polyp of colon
CPT/HCPCS: 45380; J2704

== ENCOUNTER → 2023-07-06 08:44 | Outpatient (CLI) | payer OTHER, SELFPAY ==
[2023-07-06 10:23] LABS: Hemoglobin A1C% w Est Avg Glu 8.6 % (4.0-6.0)
[2023-07-06 10:26] LABS: Alanine Aminotransferase 16 IU/L (<50); Albumin 4.5 g/dL (3.5-5.0); Albumin Globulin Ratio 1.8 (1.0-2.8); Alkaline Phosphatase 68 U/L (38-126); Aspartate Aminotransferase 14 IU/L (17-59); BUN Creatinine Ratio 16.5 (6-22); Bilirubin Total 0.5 mg/dL (0.2-1.3); Blood Urea Nitrogen 13 mg/dL (9-20); Calcium 9.5 mg/dL (8.4-10.2); Carbon Dioxide 31 mmol/L (22-32); Chloride 108 mmol/L (98-107); Estimated Glomerular Filt Rate > 60 mL/min (>60); Globulin 2.5 g/dL (1.7-4.1); Glucose 182 mg/dL (80-110); HEMOLYSIS < 15 (0-50); Potassium 4.8 mmol/L (3.4-5.1); Sodium 141 mmol/L (137-145)
== END ==
PROVIDERS: PCP Internal Medicine; Referring Provider Internal Medicine; Visit Provider Internal Medicine
DX: E11.9 Type 2 diabetes mellitus without complications (principal); I10 Essential (primary) hypertension
CPT/HCPCS: 36415; 80053; 83036

== ENCOUNTER → 2023-10-24 08:39 | Outpatient (CLI) | payer OTHER, SELFPAY ==
[2023-10-24 10:42] LABS: Hemoglobin A1C% w Est Avg Glu 8.4 % (4.0-6.0)
[2023-10-24 11:03] LABS: BUN Creatinine Ratio 20.7 (6-22); Blood Urea Nitrogen 18 mg/dL (9-20); Calcium 9.1 mg/dL (8.4-10.2); Carbon Dioxide 23 mmol/L (22-32); Chloride 104 mmol/L (98-107); Estimated Glomerular Filt Rate > 60 mL/min (>60); Glucose 187 mg/dL (80-110); HEMOLYSIS < 15 (0-50); Potassium 4.6 mmol/L (3.4-5.1); Sodium 137 mmol/L (137-145)
== END ==
LOC: LAB 08:40
PROVIDERS: PCP Internal Medicine; Referring Provider Internal Medicine; Visit Provider Internal Medicine
DX: E11.9 Type 2 diabetes mellitus without complications (principal); I10 Essential (primary) hypertension
CPT/HCPCS: 36415; 80048; 83036

== ENCOUNTER → 2024-01-17 08:14 | Outpatient (CLI) | payer OTHER, SELFPAY ==
[2024-01-17 09:55] LABS: BUN Creatinine Ratio 17.9 (6-22); Blood Urea Nitrogen 15 mg/dL (9-20); Calcium 9.3 mg/dL (8.4-10.2); Carbon Dioxide 26 mmol/L (22-32); Chloride 103 mmol/L (98-107); Estimated Glomerular Filt Rate > 60 mL/min (>60); Glucose 132 mg/dL (80-110); HEMOLYSIS < 15 (0-50); Potassium 4.3 mmol/L (3.4-5.1); Sodium 135 mmol/L (137-145)
[2024-01-17 10:30] LABS: Hemoglobin A1C% w Est Avg Glu 7.3 % (4.0-6.0)
== END ==
PROVIDERS: PCP Internal Medicine; Referring Provider Internal Medicine; Visit Provider Internal Medicine
DX: E11.9 Type 2 diabetes mellitus without complications (principal); I10 Essential (primary) hypertension; E78.2 Mixed hyperlipidemia
CPT/HCPCS: 36415; 80048; 83036

== ENCOUNTER → 2024-04-17 08:51 | Outpatient (CLI) | payer OTHER, SELFPAY ==
[2024-04-17 10:20] LABS: Hemoglobin A1C% w Est Avg Glu 7.6 % (4.0-6.0)
[2024-04-17 10:23] LABS: Alanine Aminotransferase 23 IU/L (<50); Albumin 4.5 g/dL (3.5-5.0); Albumin Globulin Ratio 1.9 (1.0-2.8); Alkaline Phosphatase 73 U/L (38-126); Aspartate Aminotransferase 20 IU/L (17-59); Bilirubin Total 0.6 mg/dL (0.2-1.3); Blood Urea Nitrogen 22 mg/dL (9-20); Calcium 9.4 mg/dL (8.4-10.2); Carbon Dioxide 24 mmol/L (22-32); Chloride 103 mmol/L (98-107); Cholesterol 172 mg/dL (140-199); Estimated Glomerular Filt Rate > 60 mL/min (>60); Globulin 2.4 g/dL (1.7-4.1); Glucose 137 mg/dL (80-110); HDL Cholesterol 44 mg/dL (40-60); HEMOLYSIS < 15 (0-50); LDL Cholesterol Calculated 92 mg/dL (<100); Potassium 4.4 mmol/L (3.4-5.1); Sodium 138 mmol/L (137-145); Total Protein 6.9 g/dL (6.3-8.2); Triglycerides 180 mg/dL (35-150)
== END ==
LOC: LAB 08:52
PROVIDERS: PCP Internal Medicine; Referring Provider Internal Medicine; Visit Provider Internal Medicine
DX: E11.9 Type 2 diabetes mellitus without complications (principal); E78.5 Hyperlipidemia, unspecified; I10 Essential (primary) hypertension
CPT/HCPCS: 36415; 80053; 80061; 83036

== ENCOUNTER → 2024-07-03 09:06 | Outpatient (CLI) | payer OTHER, SELFPAY ==
[2024-07-03 10:14] LABS: Hemoglobin A1C% w Est Avg Glu 7.3 % (4.0-6.0)
[2024-07-03 10:25] LABS: Alanine Aminotransferase 19 IU/L (<50); Albumin 4.3 g/dL (3.5-5.0); Albumin Globulin Ratio 1.7 (1.0-2.8); Alkaline Phosphatase 68 U/L (38-126); Aspartate Aminotransferase 16 IU/L (17-59); Bilirubin Total 0.8 mg/dL (0.2-1.3); Blood Urea Nitrogen 13 mg/dL (9-20); Calcium 9.2 mg/dL (8.4-10.2); Carbon Dioxide 26 mmol/L (22-32); Chloride 105 mmol/L (98-107); Estimated Glomerular Filt Rate > 60 mL/min (>60); Globulin 2.5 g/dL (1.7-4.1); Glucose 164 mg/dL (80-110); HEMOLYSIS < 15 (0-50); Potassium 4.3 mmol/L (3.4-5.1); Sodium 139 mmol/L (137-145); Total Protein 6.8 g/dL (6.3-8.2)
== END ==
PROVIDERS: PCP Internal Medicine; Referring Provider Internal Medicine; Visit Provider Internal Medicine
DX: E11.9 Type 2 diabetes mellitus without complications (principal); I10 Essential (primary) hypertension
CPT/HCPCS: 36415; 80053; 83036

== ENCOUNTER → 2024-10-16 08:48 | Outpatient (CLI) | payer OTHER, SELFPAY ==
[2024-10-16 10:07] LABS: Hemoglobin A1C% w Est Avg Glu 8.0 % (4.0-6.0)
[2024-10-16 10:20] LABS: Alanine Aminotransferase 18 IU/L (<50); Albumin 4.4 g/dL (3.5-5.0); Albumin Globulin Ratio 1.6 (1.0-2.8); Alkaline Phosphatase 73 U/L (38-126); Blood Urea Nitrogen 14 mg/dL (9-20); Calcium 9.6 mg/dL (8.4-10.2); Carbon Dioxide 26 mmol/L (22-32); Chloride 103 mmol/L (98-107); Cholesterol 156 mg/dL (140-199); Estimated Glomerular Filt Rate > 60 mL/min (>60); Globulin 2.7 g/dL (1.7-4.1); Glucose 176 mg/dL (70-99); HDL Cholesterol 41 mg/dL (40-60); HEMOLYSIS < 15 (0-50); Potassium 4.7 mmol/L (3.4-5.1); Sodium 138 mmol/L (137-145); Total Protein 7.1 g/dL (6.3-8.2); Triglycerides 255 mg/dL (35-150)
== END ==
PROVIDERS: PCP Internal Medicine; Referring Provider Internal Medicine; Visit Provider Internal Medicine
DX: E11.9 Type 2 diabetes mellitus without complications (principal); I10 Essential (primary) hypertension; E78.5 Hyperlipidemia, unspecified
CPT/HCPCS: 36415; 80053; 80061; 83036

== ENCOUNTER → 2025-01-15 08:57 | Outpatient (CLI) | payer OTHER, SELFPAY ==
[2025-01-15 10:13] LABS: Blood Urea Nitrogen 14 mg/dL (9-20); Calcium 9.5 mg/dL (8.4-10.2); Carbon Dioxide 27 mmol/L (22-32); Chloride 101 mmol/L (98-107); Estimated Glomerular Filt Rate > 60 mL/min (>60); Glucose 173 mg/dL (70-99); HEMOLYSIS < 15 (0-50); Potassium 4.4 mmol/L (3.4-5.1); Sodium 136 mmol/L (137-145)
[2025-01-15 10:45] LABS: Hemoglobin A1C% w Est Avg Glu 8.5 % (4.0-6.0)
== END ==
PROVIDERS: PCP Internal Medicine; Referring Provider Internal Medicine; Visit Provider Internal Medicine
DX: E11.9 Type 2 diabetes mellitus without complications (principal); I10 Essential (primary) hypertension
CPT/HCPCS: 36415; 80048; 83036

== ENCOUNTER 2025-03-18 04:51 | Emergency (ER) | payer OTHER, SELFPAY ==
[2025-03-18] VITALS (10 sets, daily range): BP systolic 131–173; BP diastolic 66–93; PULSE 91–112; RESP 10–17; TEMP 36.3; O2SAT 96–98; BMI 27.2
--- NOTE | 2025-03-18 05:17 | ED.EPISTAXIS ---
HPI - Epistaxis General Chief complaint: Nasal Problem Stated complaint: Bloody Nose no thinners Time Seen by Provider: 03/18/25 05:13 Source: patient and family Mode of arrival: Ambulatory History of Present Illness HPI Narrative: 74-year-old with left-sided nosebleed brisk onset tonight, takes aspirin but no other blood thinner medications, no local nose or facial trauma. No prior nosebleed recalled, no nasal procedures or sprays. No similar problems before. No bleeding disorders, liver disease. Related Data Home Medications ?Medication ?Instructions ?Recorded ?Confirmed ASPIRIN (Aspirin Low Dose) 81 mg PO Q DAY ##0 05/17/10 01/19/25 [ALLER-JANET] 1 tab PO Q DAY ##0 05/17/10 01/19/25 CeraVe #1 ea 11/20/17 01/19/25 cholecalciferol (vitamin D3) 25 1,000 unit PO DAILY #0 tabs 05/12/19 01/19/25 mcg (1,000 unit) tablet (Vitamin D3) vitamin B complex (B 1 tab PO DAILY 05/12/19 01/19/25 Complex-Vitamin B12 tablet) fluticasone propionate 50 1 spray intranasal Q12H PRN 10/20/24 01/19/25 mcg/actuation nasal spray,suspension (Flonase Allergy Relief) Previous Rx's ?Medication ?Instructions ?Recorded alprazolam 0.5 mg tablet 0.5 - 1 mg (1 - 2 x 0.5 mg) PO 03/06/11 Q8HP PRN anxiety #20 tabs tamsulosin 0.4 mg capsule 0.8 mg (2 x 0.4 mg) PO DAILY #180 04/25/24 caps empagliflozin 25 mg tablet 25 mg PO DAILY #90 tabs 08/28/24 (Jardiance) venlafaxine 75 mg capsule,extended 75 mg PO DAILY #90 caps 08/28/24 release 24 hr clonazepam 0.5 mg tablet 0.5 mg PO BID #180 tabs 09/15/24 glipizide 10 mg tablet 10 mg PO BID #180 tabs 09/22/24 lisinopril 20 mg tablet 20 mg PO BID #180 tabs 09/22/24 propranolol 20 mg tablet 20 mg PO BID #180 tabs 09/22/24 atorvastatin 20 mg tablet See Rx Instructions .Route 12/15/24 .COMPLEX #90 tabs metformin 1,000 mg tablet 1,000 mg PO BID #180 tabs 12/22/24 blood-glucose sensor (FreeStyle #2 ea 01/29/25 Luis Manuel 2 Plus Sensor device) amoxicillin 875 mg-potassium 1 tab PO BID #14 tabs 03/18/25 clavulanate 125 mg tablet Allergies Allergy/AdvReac Type Severity Reaction Status Date / Time semaglutide (From Ozempic) AdvReac Intermediate Nausea Verified 01/19/25 09:03 victoza AdvReac Intermediate Abdominal Uncoded 01/19/25 09:03 Pain Patient History Medical History BPH w urinary obs/LUTS Tinnitus Low testosterone Chicken pox Measles Mumps Eczema Psoriasis Shoulder pain (2014) Nummular eczema (06/29/17) Diabetic peripheral neuropathy (05/09/16) Type 2 diabetes mellitus (04/21/14) Generalized anxiety disorder (11/11/10) Allergic rhinitis (11/11/10) Hyperlipidemia (11/11/10) Essential hypertension (11/11/10) Surgical History No history of previous surgery (01/2015) Family History Brother Age: 70 Overweight Father Age: 103 Hypertension Mother Age: 98 Diabetes mellitus Social History marital status: number of children: 1 household members: spouse and family lives independently: Yes caregiver/support person: No housing: house pets and animals: Yes education level: master's degree occupational status: employed and other current occupational exposures/hazards: No travel history: recurrent leisure activities: art Smoking Status: Never smoker Tobacco: How many years used: 0 quit status: quit date established second hand exposure: No alcohol intake: current substance use type: does not use Smoking Status: Never smoker alcohol intake frequency: a few times a week Alcohol type: wine Exam Narrative Exam Narrative: GENERAL: Well-developed patient, in mild distress. HEAD: Atraumatic. Normocephalic. EYES: Pupils equal round and reactive. Extraocular motions intact. No scleral icterus. No injection or drainage. ENT: active BRB bleeding from left nare, could not see source, not responsive to nose pinch bleeding, purulent drainage. Throat without erythema, tonsillar hypertrophy or exudate. Airway patent. NECK: Trachea midline. Non tender CARDIOVASCULAR: Regular rate and rhythm without murmurs, gallops, or rubs. RESPIRATORY: Clear to auscultation. Breath sounds equal bilaterally. No wheezes, rales, or rhonchi. GASTROINTESTINAL: Abdomen soft, non-tender, nondistended. EXTREMITIES: No edema or joint tenderness. BACK: Nontender without deformity or crepitance. No flank tenderness. NEURO: AOx3. Motor functions grossly nonfocal. SKIN: No rash or erythema of visible areas Initial Vital Signs Initial Vital Signs: Vital Signs Pulse Rate 111 H 03/18/25 04:56 Pulse Oximetry 97 03/18/25 04:56 Procedures Epistaxis Control Time of procedure: 05:19 Nostril: left Direct Inspection: yes and unable to visualize (Attempted nasal specula exam, no clear source of bleeding, fairly brisk) Clots Removed by: blowing nose Cautery Used: none Device Inserted: hemostatic balloon (With insufflation advised saline initial 4 cc then an additional 1 cc) Device Size: 55 (55mm (5.5cm)) Patient Tolerated Procedure: well Course Orders Ordered: Discontinued Medications Amoxicillin/Clavulanate Potassium (Amoxicillin/Clav 875/125 Mg) 1 tab PO NOW ONE Stop: 03/18/25 05:14 Last Admin: 03/18/25 05:30 Dose: 1 tab Documented By: AB Hydralazine HCl (Hydralazine 20 Mg/Ml Vial) 5 mg IV NOW ONE Stop: 03/18/25 05:23 Last Admin: 03/18/25 05:30 Dose: 5 mg Documented By: AB Ketorolac Tromethamine (Ketorolac 30 Mg/Ml Vial) 15 mg IV NOW ONE Stop: 03/18/25 05:38 Last Admin: 03/18/25 05:44 Dose: Not Given Documented By: AB Lisinopril (Lisinopril 20 Mg Tablet) 20 mg PO NOW ONE Stop: 03/18/25 05:23 Last Admin: 03/18/25 05:30 Dose: 20 mg Documented By: AB Morphine Sulfate (Morphine 4 Mg/Ml Inj) 4 mg IV NOW ONE Stop: 03/18/25 05:38 Last Admin: 03/18/25 05:44 Dose: Not Given Documented By: Ondansetron HCl (Ondansetron 4 Mg/2 Ml Inj) 4 mg IV NOW ONE Stop: 03/18/25 05:38 Last Admin: 03/18/25 05:44 Dose: Not Given Documented By: AB Propranolol HCl (Propranolol 10 Mg Tablet) 20 mg PO NOW ONE Stop: 03/18/25 05:24 Last Admin: 03/18/25 05:35 Dose: 20 mg Documented By: Vital Signs Vital signs: Vital Signs - 8 hr 03/18/25 04:56 03/18/25 04:57 03/18/25 04:57 Temperature Pulse Rate 111 H 112 H Respiratory Rate Blood Pressure 173/93 H Pulse Oximetry 97 98 Oxygen Delivery Method 03/18/25 04:59 03/18/25 05:00 03/18/25 05:30 Temperature 97.3 F L Pulse Rate 111 H 107 H 103 H Respiratory Rate 17 15 Blood Pressure 173/93 H 173/93 H Pulse Oximetry 97 98 Oxygen Delivery Method Room Air 03/18/25 05:30 03/18/25 05:35 03/18/25 05:35 Temperature Pulse Rate 103 H 103 H Respiratory Rate 11 L 15 Blood Pressure 164/78 H Pulse Oximetry 97 96 Oxygen Delivery Method Room Air Room Air 03/18/25 06:01 Temperature Pulse Rate 95 H Respiratory Rate Blood Pressure 149/71 H Pulse Oximetry Oxygen Delivery Method MDM - Epistaxis Lab Data Attestation: I reviewed the patient's lab results. Lab results narrative: White blood cell count 5600, hemoglobin 10.5, platelets adequate. Glucose 197. Normal renal function, serum CO2, electrolytes. Liver functions normal. INR normal. 03/18/25 05:04 03/18/25 05:04 Labs: Lab Results 03/18/25 Range/Units 05:04 WBC 5.6 (4.5-11.0) X10^3/uL RBC 4.65 (4.5-5.9) X10^6/uL Hgb 10.5 L (13.5-17.5) g/dL Hct 33.4 L (41-53) % MCV 71.8 L (80-100) fL MCH 22.6 L (26-34) PG MCHC 31.5 (30-36) % RDW 17.6 H (11.6-14.8) % Plt Count 203 (150-400) X10^3/uL Neut % (Auto) 49.1 L (50-75) % Lymph % (Auto) 34.2 (25-40) % [place] % (Auto) 13.0 (3-14) % Eos % (Auto) 3.1 (2-4) % Baso % (Auto) 0.6 (0-2) % Neut # (Auto) 2700 (4264-0422) /uL Lymph # (Auto) 1900 (9556-8818) /uL [place] # (Auto) 700 (0-900) /uL Eos # (Auto) 200 (0-450) /uL Baso # (Auto) 0 (0-100) /uL PT 10.3 (9.4-12.5) SECONDS INR 0.9 (0.9-1.3) Sodium 140 (137-145) mmol/L Potassium 3.9 (3.4-5.1) mmol/L Chloride 105 (98-107) mmol/L Carbon Dioxide 25 (22-32) mmol/L BUN 17 (9-20) mg/dL Creatinine 0.73 (0.66-1.25) mg/dL Estimated GFR > 60 (>60) mL/min BUN/Creatinine Ratio 23.3 H (6-22) Glucose 197 H (70-99) mg/dL Calcium 9.3 (8.4-10.2) mg/dL Total Bilirubin 0.5 (0.2-1.3) mg/dL AST 20 (17-59) IU/L ALT 20 (<50) IU/L Alkaline Phosphatase 76 (38-126) U/L Total Protein 7.4 (6.3-8.2) g/dL Albumin 4.5 (3.5-5.0) g/dL Globulin 2.9 (1.7-4.1) g/dL Albumin/Globulin Ratio 1.6 (1.0-2.8) MDM Narrative Medical decision making narrative: 74-year-old male on aspirin but no other blood thinner medications, has nontraumatic left-sided brisk nasal epistaxis. Triage elevated blood pressure noted, takes multiple blood pressure medications, not yet having taken morning doses. On speculum initial exam has bright brisk bleeding of unclear source, not obviously wants of 2 nasal clamping, posterior versus anterior. Trial of balloon tamponade, verbal consent. Left nasal balloon placed, with insufflation 4 cc saline then an additional 1 cc, improving symptoms. Oral dose Augmentin given, prescription sent to his pharmacy. IV hydralazine 5 mg, with oral lisinopril and propranolol usual morning doses. Labs pending. Lab data: White blood cell count 5600, hemoglobin 10.5, platelets adequate. Glucose 197. Normal renal function, serum CO2, electrolytes. Liver functions normal. INR normal. Systolic blood pressure 140s, improving. Nasal bleeding had stopped. Further observed, no recurrence of nasal bleeding, patient able to take oral fluids, was ambulated without dizziness or other concerning symptoms. He feels comfortable going home, home with . Advised to hold aspirin for now. Follow up with Otolaryngology for likely balloon removal and possible flexible nasopharyngoscopy evaluation in the next few days, contact information given for the office of Dr. Nieto on-call. Encouraged patient/ to call later today during open hours to coordinate follow up, approaching the holiday. Encouraged to take oral Augmentin to help prevent infection and toxic shock complications of nasal balloon packing. He seemed to expressed understanding. Discharged home with . Follow up with Otolaryngology as above. Discharge Plan Departure Patient Disposition: Home Clinical Impression: Epistaxis Instructions: DI for Nosebleed Activity Restrictions/Additional Instructions: Nontraumatic left sided nose bleeding. Unclear if source anterior vs posterior in the nasal cavity by direct examination. Topical balloon was placed into the left nasal cavity, with insufflation of the balloon with saline. Markedly elevated blood pressure worsens nasal bleeding, IV hydralazine blood pressure medicine given, with morning doses of lisinopril and propranolol given by mouth. Symptoms improved. Blood pressure improved. Balloon in the sinus can cause sinus infection and foreign body complications, so antibiotic Augmentin was given by mouth to help prevent this complication, prescription for further antibiotics sent to your preferred pharmacy. Advise recheck in 2-3 days with local otolaryngology/your nose throat specialist Dr. Nieto, his office information provided for arranging follow up evaluation, when the balloon likely we would be removed, and the specialists may use a nasal flexible scope to go look up into the nasal cannula for any sources of bleeding of concern. Consider holding your aspirin for the next few days pending otolaryngology evaluation. Prescriptions: New amoxicillin-pot clavulanate 875-125 mg tablet 1 tab PO BID Qty: 14 0RF No Action ASPIRIN (Aspirin Low Dose) 81 mg PO Q DAY Qty: 0 [ALLER-JANET] 1 tab PO Q DAY Qty: 0 cholecalciferol (vitamin D3) [Vitamin D3] 25 mcg (1,000 unit) tablet 1,000 unit PO DAILY Qty: 0 tamsulosin 0.4 mg capsule 0.8 mg PO DAILY Qty: 180 3RF Jardiance 25 mg tablet 25 mg PO DAILY Qty: 90 3RF venlafaxine 75 mg capsule,extended release 24hr 75 mg PO DAILY Qty: 90 3RF clonazepam 0.5 mg tablet 0.5 mg PO BID Qty: 180 2RF propranolol 20 mg tablet 20 mg PO BID Qty: 180 3RF lisinopril 20 mg tablet 20 mg PO BID Qty: 180 3RF glipizide 10 mg tablet 10 mg PO BID Qty: 180 3RF atorvastatin 20 mg tablet See Rx Instructions .ROUTE .COMPLEX Qty: 90 3RF Dose Instruction: Take one tablet by mouth one time daily Rx Instructions: Take one tablet by mouth one time daily metformin 1,000 mg tablet 1,000 mg PO BID Qty: 180 3RF (DME) FreeStyle Luis Manuel 2 Plus Sensor Device See Rx Instructions .Route Qty: 2 12RF Rx Instructions: As directed (DME) CeraVe Qty: 1 Dose Instruction: As directed Patient Comments: Applies Daily Rx Instructions: As directed alprazolam 0.5 mg tablet 0.5 - 1 mg PO Q8HP PRN (Reason: anxiety) Qty: 20 0RF vitamin B complex [B Complex-Vitamin B12] Tablet 1 tab PO DAILY fluticasone propionate [Flonase Allergy Relief] 50 mcg/actuation spray,suspension 1 spray intranasal Q12H PRN Rx Instructions: administer into each nostril Referrals: Francisco Granados MD [Primary Care Provider, Internal Medicine] Fazal Nieto MD [Physician, Otolaryngology (ENT)] Stand Alone Forms: Patient Portal/API
[2025-03-18] MEDS: hydrALAZINE 20 MG/ML VIAL 5 MG IV (05:30)
[2025-03-18] MEDS: AMOXICILLIN/CLAV 875/125 MG 1 TAB PO (05:30)
[2025-03-18] MEDS: PROPRANOLOL 10 MG TABLET 20 MG PO (05:35)
[2025-03-18 05:36] LABS: Add Manual Diff / Slide Review NO; Hematocrit 33.4 % (41-53); Hemoglobin 10.5 g/dL (13.5-17.5); Lymphocytes Absolute Auto 1900 /uL (1100-4500); Mean Corpuscular HGB Conc 31.5 % (30-36); Mean Corpuscular Hemoglobin 22.6 PG (26-34); Mean Corpuscular Volume 71.8 fL (80-100); Platelet Count 203 X10^3/uL (150-400)
[2025-03-18 05:37] LABS: INR 0.9 (0.9-1.3); Prothrombin Time 10.3 SECONDS (9.4-12.5)
[2025-03-18 05:42] LABS: Alanine Aminotransferase 20 IU/L (<50); Albumin 4.5 g/dL (3.5-5.0); Albumin Globulin Ratio 1.6 (1.0-2.8); Alkaline Phosphatase 76 U/L (38-126); Blood Urea Nitrogen 17 mg/dL (9-20); Calcium 9.3 mg/dL (8.4-10.2); Carbon Dioxide 25 mmol/L (22-32); Chloride 105 mmol/L (98-107); Estimated Glomerular Filt Rate > 60 mL/min (>60); Globulin 2.9 g/dL (1.7-4.1); Glucose 197 mg/dL (70-99); HEMOLYSIS < 15 (0-50); Potassium 3.9 mmol/L (3.4-5.1); Sodium 140 mmol/L (137-145); Total Protein 7.4 g/dL (6.3-8.2)
== END 2025-03-18 06:58 | disposition home or self-care (01) ==
PROVIDERS: Emergency Provider Emergency Medicine; PCP Internal Medicine
DX: R04.0 Epistaxis (principal); Z79.82 Long term (current) use of aspirin
CPT/HCPCS: 30901; 36415; 80053; 85025; 85610; 96374; 99284; J0360